=== PATIENT | male | born 1935 | race Caucasian/White ===

== ENCOUNTER 2017-10-02 15:00 | Inpatient (IN) ==
[2017-10-02 19:45] LABS: Basophils # (Auto) 0 K/mcL (0.0-0.3); Basophils % (Auto) 0.4 % (0.0-2.0); Eosinophils # (Auto) 0.2 K/mcL (0.0-0.7); Eosinophils % (Auto) 3.3 % (0.0-7.0); Granulocytes % (Auto) 54.6 % (38.0-78.0); Lymphocytes # (Auto) 1.9 K/mcL (1.5-4.8); Lymphocytes % (Auto) 34.5 % (15.5-49.0); Mean Cell Volume 101.1 fL (80.0-100.0); Mean Corpuscular HGB Conc 34.4 g/dL (31.0-36.0); Mean Corpuscular Hemoglobin 34.8 pg (26.0-34.0); Monocytes # (Auto) 0.4 K/mcL (0.1-0.9); Monocytes % (Auto) 7.2 % (1.0-12.0); Platelet Count 116 K/mcL (140-440); RBC 4.09 M/mcL (4.50-5.90); Red Cell Distribution Width 14.1 % (11.5-14.5)
[2017-10-02 19:53] LABS: Appearance,Urine CLEAR; Bilirubin,Urine NEG (NEG); Color,Urine YELLOW; Glucose,Urine (UA) NEGATIVE (NEG); Leukocyte Esterase,Urine NEG /uL (NEG); Protein,Urine NEG (NEG); Specific Gravity,Urine 1.018 (1.000-1.035); Urine Blood NEG mg/dL (<0.03)
[2017-10-02 19:53] LABS: Blood Urea Nitrogen 11 mg/dl (8-23)
[2017-10-08] MEDS ORDERED: ceFAZolin 1 GM VIAL IV SCH ×2 (06:00→09:45)
[2017-10-08] MEDS ORDERED: CELECOXIB 200 MG CAPSULE PO SCH ×2 (06:00→09:45)
[2017-10-08] MEDS ORDERED: oxyCODONE 10 MG TAB.ER.12H PO SCH ×2 (06:00→09:45)
[2017-10-08] MEDS ORDERED: PREGABALIN 75 MG CAPSULE PO SCH ×2 (06:00→09:45)
[2017-10-08] MEDS ORDERED: 0.9 % SODIUM CHLORIDE 9 ML, KETOROLAC 30 MG, ROPIVACAINE HCL/PF 49.5 ML, EPINEPHrine 0.... IJ SCH (09:00)
[2017-10-08] MEDS ORDERED: PROPOFOL 200 MG/20 ML VIAL IV ONE (13:30)
[2017-10-08] MEDS ORDERED: ePHEDrine 50 MG/ML AMPUL IV ONE (13:30)
[2017-10-08] MEDS ORDERED: MIDAZOLAM 2 MG/2 ML VIAL IV ONE (13:30)
[2017-10-08] MEDS ORDERED: ONDANSETRON 4 MG/2 ML VIAL IV ONE (13:30)
[2017-10-08] MEDS ORDERED: KETAMINE 100 MG/ML ML IV ONE (13:30)
[2017-10-08] MEDS ORDERED: BUPIVACAINE PF 0.25% 30 ML VIAL IJ ONE (13:30)
[2017-10-08] MEDS ORDERED: TRANEXAMIC ACID 1,000 MG/10 ML VIAL IV ONE ×2 (13:30→15:09)
[2017-10-08] MEDS ORDERED: PHENYLEPHRINE 10 MG/ML VIAL IV ONE (13:30)
[2017-10-08] MEDS ORDERED: GLYCOPYRROLATE 0.2 MG/ML VIAL IV ONE (13:30)
[2017-10-08] MEDS ORDERED: LIDOCAINE HCL/PF 100 MG/5 ML SYRINGE IV ONE (13:30)
[2017-10-08] MEDS ORDERED: ROPIVACAINE HCL/PF 20 ML VIAL IJ ONE (13:30)
[2017-10-08] MEDS ORDERED: GENTAMICIN SULFATE 800 MG/20 ML VIAL IR ONE (14:02)
[2017-10-08] MEDS ORDERED: MAGNESIUM HYDROXIDE 30 ML ORAL.SUSP PO PRN (15:09)
[2017-10-08] MEDS ORDERED: ONDANSETRON 4 MG/2 ML VIAL IV PRN (15:09)
[2017-10-08] MEDS ORDERED: ONDANSETRON ODT 4 MG TABLET SL PRN (15:09)
[2017-10-08] MEDS ORDERED: POLYETHYLENE GLYCOL 3350 17 GM PACKET PO PRN (15:09)
[2017-10-08] MEDS ORDERED: BISACODYL 10 MG SUPP.RECT PR PRN (15:09)
[2017-10-08] MEDS ORDERED: FLEETS ADULT ENEMA PR PRN (15:09)
[2017-10-08] MEDS ORDERED: METHOCARBAMOL 750 MG TABLET PO PRN (15:09)
[2017-10-08] MEDS ORDERED: BENZOCAINE/MENTHOL 1 LOZENGE PO PRN (15:09)
--- NOTE | 2017-10-08 15:09 | Brief Operative Note ---
Date of procedure: 10/08/17 Pre-op diagnosis: right knee oa Post-op diagnosis: same Procedure: right total knee arthroplasty Grafts/Implants: Yes Anesthesia: spinal Complications: none Surgeon: Chinedu Moss Drawing In Hand: Kim Olvera Estimated blood loss (cc): 150 Tourniquet Time (Minutes): 70 Specimens Removed/Pathology: none sent Condition: stable Disposition: PACU
--- NOTE | 2017-10-08 15:33 | Operative Note ---
DATE OF OPERATION: 10/08/2017 PREOPERATIVE DIAGNOSIS: Degenerative joint disease, right knee. POSTOPERATIVE DIAGNOSIS: Degenerative joint disease, right knee. PROCEDURE: Right total knee arthroplasty. SURGEON: Ton Moss M.D. ACCOUNT DIRECTOR SURGEON: Kim Olvera PA-C. ANESTHESIA: Spinal with LMA assist. ESTIMATED BLOOD LOSS: 150 mL. COMPLICATIONS: None noted. SPECIMENS REMOVED: None. DRAINS: None. TOURNIQUET TIME: 70 minutes at 300 mmHg. IMPLANTS: DePuy CMW2 bone cement 20 grams x4; DePuy Attune femoral posterior stabilized size 8, right, cemented; DePuy Attune tibial insert fixed bearing posterior stabilized size 8, 8 mm AOX; DePuy Attune tibial base fixed bearing size 7, cemented; DePuy Attune patella medialized dome 41 mm, cemented AOX. INDICATIONS: The patient has had a long-standing history of worsening pain in the knee that has failed conservative treatment. Radiographs have confirmed advanced degenerative joint disease. After a long discussion about treatment options, the patient elected to proceed with a knee arthroplasty. The risks and benefits were discussed with the patient in detail including, but not limited to, the risks of anesthesia, problems with the heart or lungs related to anesthesia, infection, compromise or injury to the nerves and blood vessels, deep venous thrombosis, pulmonary embolism, pneumonia, continued pain after surgery, worsening pain or symptoms after surgery, swelling, loss of motion, instability, leg length discrepancy, and need for repeat surgery. DESCRIPTION OF PROCEDURE: The patient was seen in the pre-anesthesia waiting room where all questions were answered and the correct side and site were identified and marked. The patient was transferred to the operating room and administered the anesthetic and given pre-operative antibiotics. A time-out was then called. The extremity was prepped and draped, exsanguinated, and the tourniquet was inflated to 300 mmHg. A midline skin incision was then made with a standard medial parapatellar arthrotomy. Debridement of the menisci, ACL, and PCL was performed followed by balancing releases in the medial lateral plane. We then established intramedullary access to both the femur and tibia in a standard fashion. The femoral guide kajal was initially placed with the distal femoral guide, pinned into place, and the distal femoral cut was performed and checked with a flat plate. We then turned our attention to the tibia. The intramedullary guide was placed with the proximal tibial cutting block. The block was appropriately positioned off the affected side, varus and valgus was checked with the extra-medullary guide, and the block was pinned into place. The proximal tibial cut was performed and the tibia was prepared for the tibial implant with appropriate rotation. The tibia, femur, and posterior compartment were debrided of osteophytes, loose bodies, and meniscal fragments We then used the gap balancing technique to balance extension with the first two cuts and good balancing was obtained with a 10 millimeter gap block. We turned our attention back to the femur and used the referencing block and implant to size appropriately. Using the gap balancing technique for the flexion space we set our rotation of the femur off the tibial cut. Anesthesia gave the patient 1 gram of Tranexamic Acid via an intravenous route. We placed the 4 in 1 cutting block and made anterior, posterior, and chamfer cuts. Box plasty cuts were then made in a standard fashion for the posterior stabilized prosthesis. We then completed osteophyte release and posterior capsule release from the posterior compartment. Trials were placed and we chose the polyethylene insert thickness that provided the best stability in all planes. With the trials in place, we did a measured resection for a resurfacing patella. We sized the patella and placed the patella trial and performed a lateral facetectomy with the saw and rongeur. Good tracking was obtained. We removed all trials, irrigated and dried all cut surfaces. We cemented the components into place including tibia, femur and patella. We placed a trial liner and held the knee in full extension with the patella compressed while the cement cured. We then removed all excess cement and placed the final polyethylene tibiofemoral component. Irrigation with 3 liters of antibiotic saline was then performed using jet-lavage. We let the tourniquet down and coagulated bleeding vessels. We injected a 100 cubic centimeter volume including Ropivacaine 49.25 cubic centimeters at 5 milligrams per cubic centimeter, Ketorolac 30 milligrams, and Epinephrine 0.5 milligrams into 100 cubic centimeters volume of normal saline. We closed the retinaculum with #2 Stratafix and 0 Vicryl. We closed the subcutaneous tissue and skin in layers out to Dermabond on the skin. A sterile pressure dressing was applied. All needle and sponge counts were correct. The patient was transferred to the recovery room in stable condition. Nikky Job ID: [id number] Doc ID: [id number] Ton Moss MD
[2017-10-08] MEDS ORDERED: IPRATROPIUM/ALBUTEROL 3 ML AMPUL.NEB NEB PRN (15:50)
[2017-10-08] MEDS ORDERED: PROMETHAZINE 25 MG/ML VIAL IV PRN (15:50)
[2017-10-08] MEDS ORDERED: fentaNYL 100 MCG/2 ML VIAL IV PRN (15:50)
[2017-10-08] MEDS ORDERED: MEPERIDINE 25 MG/ML SYRINGE IV PRN (15:50)
[2017-10-08] MEDS ORDERED: METHOCARBAMOL 1,000 MG/10 ML VIAL IV PRN (15:50)
[2017-10-08] MEDS ORDERED: ACETAMINOPHEN 1,000 MG/100 ML BOTTLE IV ONE (15:50)
[2017-10-08] MEDS ORDERED: LACTATED RINGERS 1,000 ML IV SCH (16:00)
--- NOTE | 2017-10-08 16:16 | XRay Report ---
CLINICAL INFORMATION: Postop total knee prostheses COMPARISON: None. FINDINGS: Total knee prostheses is anatomically aligned. No osseous abnormalities. Periarticular gas and soft tissue thickening seen as expected IMPRESSION: Negative Interpreted and Authenticated by: Chinedu Monte 10/08/17
[2017-10-08] MEDS: 0.9 % SODIUM CHLORIDE 1,000 ML IV SCH (16:42)
[2017-10-08] MEDS: KETOROLAC 15 MG/ML VIAL IV SCH (17:32)
[2017-10-08] MEDS ORDERED: NON FORMULARY MEDICATION 1 DOSE MISCELL (Benazepril 20 MG) PO SCH (21:00)
[2017-10-08] MEDS: DOCUSATE SODIUM 100 MG CAPSULE PO SCH (21:52)
[2017-10-08] MEDS: LISINOPRIL 20 MG TABLET PO SCH (21:52)
[2017-10-08] MEDS: ASPIRIN 325 MG ENTERIC COATED TABLET PO SCH (21:52)
[2017-10-08] MEDS: amLODIPine 10 MG TABLET PO SCH (21:58)
[2017-10-08] MEDS: ceFAZolin 1 GM VIAL IV SCH (22:09)
[2017-10-08] MEDS: SENNOSIDES 1 TABLET PO SCH (22:22)
[2017-10-08] MEDS: 0.9 % SODIUM CHLORIDE 10 ML SYRINGE IV SCH (22:23)
[2017-10-09] MEDS: 0.9 % SODIUM CHLORIDE 1,000 ML IV SCH ×3 (00:32→16:37)
[2017-10-09] MEDS: KETOROLAC 15 MG/ML VIAL IV SCH ×4 (01:18→18:02)
[2017-10-09] MEDS: HYDROcodone/APAP 10/325MG TABLET PO PRN ×4 (03:39→22:08)
[2017-10-09] MEDS: ceFAZolin 1 GM VIAL IV SCH (05:50)
[2017-10-09] MEDS: 0.9 % SODIUM CHLORIDE 10 ML SYRINGE IV SCH ×2 (05:51→14:44)
--- NOTE | 2017-10-09 06:53 | Discharge Summary ---
Ortho Discharge - TKA - Patient Instructions Diet: Regular Diet Activity: activity as tolerated, ambulate with assistive device, weight bearing as tolerated Total Knee Protocol: For Total Knee: Start ROM ABDULLAHI with stationary bike or rocking chair. Work on gaining full extension of knee. Posterior dislocation precautions provided. Hip abductor strengthening and gait training instructions provided. Apply Cryocuff as instructed. Dressing Care: May shower in 2 days, Other (dermabond- dry after shower, replace gauze and rewrap CHRISTINA) - Follow Up Plan Follow Up Appointments: Kim Olvera PA-C [Physician Fly Frame Tender] - 10/23/17 11:00 am Disposition: Home, Self-Care Prognosis: Good Rehab Potential: Good I certify that the patient requires SNF services: No Overall status at discharge: patient is progressing back to baseline - Orders For Discharge Prescriptions: Aspirin [Ecotrin] 325 mg PO BID #60 tab.ec HYDROcodone/APAP 10/325MG [[place] 10-325Mg] 1 - 2 tab PO Q4HP PRN #60 tablet PRN Reason: Pain Level 3-6 Additional Discharge Orders: Physical Therapy at Discharge - TKA Location: None Selected CPM Discharge Order Location: None Selected Walker Location: None Selected
--- NOTE | 2017-10-09 06:58 | Orthopedic Progress Note ---
Subjective Patient information: Note initiated : 10/09/17 at 6:56 am Service Date, if different from initiated Date: [] Patient: Ibrahima Brooks 82 y/o M admitted on 10/08/17 for Right Total Knee Arthroplasty. Chief Complaint: [POD #1 s/p right TKA: Doing very well. Reports no pain. No CP, SOB, numbness, tingling, or calf pain. Has not urinated independently. Is ambulating okay. Was straight cathed this am. Denies taking Flomax at home but has history of prostate cancer. No other questions or concerns.] Objective Vital signs: Vital Signs Temp Pulse Resp BP Pulse Ox 10/09/17 03:16 98.5 F 94 H 14 134/72 94 10/09/17 00:00 97.3 F 60 18 121/70 96 10/08/17 19:03 97.1 F 85 18 106/67 96 10/08/17 18:03 68 106/68 96 10/08/17 17:52 59 L 104/63 95 10/08/17 17:36 54 L 121/70 96 10/08/17 17:21 60 116/69 96 10/08/17 17:06 58 L 108/69 96 10/08/17 16:51 60 117/89 95 10/08/17 16:36 57 L 121/16 97 10/08/17 16:21 79 127/66 99 10/08/17 16:13 97.5 F 64 16 119/66 96 10/08/17 16:05 63 16 126/78 93 10/08/17 15:59 63 19 122/79 93 10/08/17 15:49 69 17 127/72 100 10/08/17 15:39 76 18 117/77 100 10/08/17 15:34 97.8 F 92 H 20 121/67 98 10/08/17 08:46 98.9 F 63 16 131/75 96 Intake and Output 10/08/17 10/09/17 10/09/17 21:59 05:59 13:59 Intake Total 1000 / 1000 1229 / 1229 Output Total 555 / 555 Balance 975 / 975 674 / 674 Intake: IV 1000 / 1000 979 / 979 Sodium Chloride 0.9% 1,000 ml @ 979 / 979 125 mls/hr IV .Q8H [facility] [place] Rx#: [id number] Oral 250 / 250 Output: Urine Catheter Amount 520 / 520 Straight 520 / 520 Void Amount Estimated Blood Loss Other: Weight 210 lb Intake & Output: Intake & Output 10/08/17 10/09/17 10/09/17 21:59 05:59 13:59 Intake Total 1000 / 1000 1229 / 1229 Output Total 555 / 555 Balance 975 / 975 674 / 674 Weight 210 lb Intake: IV 1000 / 1000 979 / 979 Sodium Chloride 0.9% 1,000 ml @ 979 / 979 125 mls/hr IV .Q8H [facility] Rx#: [id number] Oral 250 / 250 Output: Urine Catheter Amount 520 / 520 Straight 520 / 520 Void Amount Estimated Blood Loss Incision: Yes healing, No draining, No red, No swollen, No inflamed, Yes clean and dry Incision clean and dry: Yes Dressing: Yes clean, Yes dry, Yes intact Weight bearing status: as tolerated Neurological exam IM: Yes alert, Yes oriented X3, Yes motor sensory intact, Yes neurovascular intact Additional Comments: full b/l ankles/feet AROM. Knee 5 deg ext/40 deg flex Extremities exam IM: No calf tenderness, Yes normal capillary refill, Yes normal inspection, No Bela's sign, Yes Foot pink and warm, Yes neurovascular intact - Periperhal Pulses Peripheral pulses: 2+: dorsalis pedis (L), dorsalis pedis (R), posterior tibialis (L), posterior tibialis (R) - Labs CBC & BMP: 10/02/17 15:34 10/02/17 15:33 Labs: Orthopedic Labs 10/02/17 15:34 PT 14.6 H INR 1.1 10/09/17 10/02/17 05:42 15:34 Hgb Pending 14.2 Hct Pending 41.4 Assessment and Plan (1) Knee osteoarthritis POD #1 s/p right TKA: -pain control -WBAT -DVT prophylaxis ASA 325mg BID x 4 weeks -watch urination. If unable to urinate later today, give 1 dose of Flomax. When he can urinate independently, he can d/c -d/c to home today or tomorrow upon urination -10-14 days in office for PO Status: Acute
[2017-10-09] MEDS: LEVOTHYROXINE 25 MCG TABLET PO SCH (07:17)
[2017-10-09] MEDS: LEVOTHYROXINE 150 MCG TABLET PO SCH (07:17)
[2017-10-09] MEDS ORDERED: LEVOTHYROXINE SODIUM 175 MCG TABLET PO SCH (07:30)
[2017-10-09] MEDS: ASPIRIN 325 MG ENTERIC COATED TABLET PO SCH ×2 (08:41→21:59)
[2017-10-09] MEDS: DOCUSATE SODIUM 100 MG CAPSULE PO SCH ×2 (08:42→21:59)
[2017-10-09] MEDS ORDERED: TAMSULOSIN 0.4 MG CAPSULE PO ONE (14:06)
[2017-10-09] MEDS: SENNOSIDES 1 TABLET PO SCH (21:59)
[2017-10-09] MEDS: amLODIPine 10 MG TABLET PO SCH (21:59)
[2017-10-09] MEDS: LISINOPRIL 20 MG TABLET PO SCH (21:59)
[2017-10-10] MEDS: 0.9 % SODIUM CHLORIDE 10 ML SYRINGE IV SCH ×2 (00:18→05:54)
[2017-10-10] MEDS: KETOROLAC 15 MG/ML VIAL IV SCH ×2 (00:19→05:53)
[2017-10-10] MEDS: 0.9 % SODIUM CHLORIDE 1,000 ML IV SCH (01:30)
[2017-10-10] MEDS: HYDROcodone/APAP 10/325MG TABLET PO PRN ×2 (03:44→07:30)
--- NOTE | 2017-10-10 07:15 | Orthopedic Progress Note ---
Subjective Patient information: Note initiated : 10/10/17 at 7:14 am Service Date, if different from initiated Date: [] Patient: Ibrahima Brooks 82 y/o M admitted on 10/08/17 for Right Total Knee Arthroplasty. Chief Complaint: [] Interval history: doing well. pain under control Objective Vital signs: Vital Signs Temp Pulse Resp BP Pulse Ox 10/10/17 07:12 98.0 F 72 12 117/73 93 10/10/17 03:38 98.4 F 67 16 109/64 92 10/10/17 00:54 98.6 F 67 123/70 93 10/09/17 22:18 98.4 F 71 20 144/73 93 10/09/17 17:00 98.9 F 77 18 122/69 91 10/09/17 13:17 99.1 F H 94 H 16 123/56 93 10/09/17 08:00 98.9 F 74 16 141/72 95 Intake and Output 10/09/17 10/10/17 10/10/17 21:59 05:59 13:59 Intake Total 1000 / 1000 1875 / 1875 Output Total 575 / 575 560 / 560 Balance 425 / 425 1315 / 1315 Intake: IV 1000 / 1000 1375 / 1375 Sodium Chloride 0.9% 1,000 ml @ 1000 / 1000 1375 / 1375 125 mls/hr IV .Q8H [facility] Rx#: [id number] Oral 500 / 500 Output: Void Amount 575 / 575 560 / 560 Other: # Voids 1 Weight 217 lb Intake & Output: Intake & Output 10/09/17 10/10/17 10/10/17 21:59 05:59 13:59 Intake Total 1000 / 1000 1875 / 1875 Output Total 575 / 575 560 / 560 Balance 425 / 425 1315 / 1315 Weight 217 lb Intake: IV 1000 / 1000 1375 / 1375 Sodium Chloride 0.9% 1,000 ml @ 1000 / 1000 1375 / 1375 125 mls/hr IV .Q8H [facility] Rx#: [id number] Oral 500 / 500 Output: Void Amount 575 / 575 560 / 560 Other: # Voids 1 Incision: Yes healing Incision clean and dry: Yes Dressing: Yes clean, Yes dry, Yes intact Weight bearing status: full Neurological exam IM: Yes abnormal gait, Yes alert, Yes oriented X3, Yes motor sensory intact, Yes neurovascular intact Extremities exam IM: No calf tenderness, Yes Foot pink and warm, Yes neurovascular intact - Labs CBC & BMP: 10/09/17 05:42 10/02/17 15:33 Labs: Orthopedic Labs 10/02/17 15:34 PT 14.6 H INR 1.1 10/10/17 10/09/17 10/02/17 05:40 05:42 15:34 Hgb Pending 12.0 L 14.2 Hct Pending 34.8 L 41.4 Assessment and Plan (1) Knee osteoarthritis pod 2 s/p tka wbat pain control dvt prophylaxis dc planning Status: Acute
[2017-10-10] MEDS: LEVOTHYROXINE 150 MCG TABLET PO SCH (07:24)
[2017-10-10] MEDS: LEVOTHYROXINE 25 MCG TABLET PO SCH (07:24)
[2017-10-10] MEDS: DOCUSATE SODIUM 100 MG CAPSULE PO SCH (08:56)
[2017-10-10] MEDS: ASPIRIN 325 MG ENTERIC COATED TABLET PO SCH (08:56)
== END 2017-10-10 11:00 | disposition home or self-care (01) | DRG 470 ==
LOC: MEDSUR 10-08 08:46
PROVIDERS: ADMIT Orthopaedic Surgery Sports Medicine; ATTEND Orthopaedic Surgery Sports Medicine